=== PATIENT | female | born 1985 | race Caucasian/White ===

== ENCOUNTER 2018-10-10 10:42 | Emergency (ER) | payer MEDICAID, SELFPAY ==
[2018-10-10 11:20] VITALS: BP 111/70; PULSE 88; RESP 16; TEMP 36.8; O2SAT 98
--- NOTE | 2018-10-10 11:53 | NUR.NOTE ---
Nursing Note: Told [facility] that she was going home in pain. LWBS. Dayanara Solomon
== END 2018-10-10 11:53 | disposition left before discharge ==
LOC: ER 11:31
PROVIDERS: PCP Nurse Practitioner Family
DX: Z53.21 Procedure and treatment not carried out due to patient leaving prior to being seen by health care provider (principal)

== ENCOUNTER 2018-12-18 13:06 | Emergency (ER) | payer MEDICAID, SELFPAY ==
[2018-12-18 13:12] VITALS: BP 117/81; PULSE 107; RESP 16; TEMP 36.5; O2SAT 97
--- NOTE | 2018-12-18 13:17 | W.ED.GENAD ---
Discharge Plan Disposition Patient Disposition: HOME Condition: Stable Discharge Details Chief Complaint: DentalOral Clinical Impression: Dental infection Primary Care Provider: Cholo Mtz ED Provider: Chay Paez Home Meds and New Rx's Prescriptions: New penicillin V potassium 500 mg tablet 500 mg PO QID 10 Days Qty: 40 RF: 0 Continued gabapentin 800 mg Tablet 800 mg PO TID RF: 0 buprenorphine-naloxone [Suboxone] 8-2 mg Film DAILY RF: 0 Discharge Instructions Instructions: Dental Abscess (ED) Additional Instructions: follow up with your dentist office within 2 weeks if you have difficulty breathing or swallowing liquids return to the emergency department Medical Decision Making 33 yo female comes in with one week of left upper tooth pain and has had increased swelling of the cheek for a day. Denies dyspnea or difficulty swallowing. She has numerous dental caries and the left upper molar (last that is left posteriorly) is eroded with pain with percussion to this tooth, no visible abscess I can drain, mild swelling of soft tissues over this on the cheek. Normal oropharynx, midline uvula, no pain over hyoid or submandibular swelling so doubt ludwigs, epiglotitis, rpa. Will start abx and advised f/u with dentist and return precautions given Differential Diagnosis tooth abscess, pulpitis, caries HPI General Mode of arrival: ambulatory. Date/Time Provider Initiated Documentation: 12/18/18 13:08. Limitations to Documentation: no limitations. Information obtained by: patient. History of Present Illness 33 year old F presents to the emergency department with the chief complaint of left upper tooth pain, described as moderate, Quality is described as aching, and is localized to the mouth. Patient reports no radiation. Patient started experiencing this week(s) (1) and it has been constant. No relieving factors improve symptom(s), No exacerbating factors reported . Patient notes no other symptoms.. Related Data Home Medications Medication Instructions Recorded Confirmed buprenorphine-naloxone [Suboxone] DAILY 10/10/18 gabapentin 800 mg PO TID 10/10/18 12/18/18 penicillin V potassium 500 mg PO QID 10 Days #40 tab 12/18/18 Previous Rx's Medication Instructions Recorded penicillin V potassium 500 mg PO QID 10 Days #40 tab 12/18/18 Allergies Allergy/AdvReac Type Severity Reaction Status Date / Time bees Allergy Uncoded 12/18/18 13:17 General Stated Complaint: DentalOral RUFINO: 4 Review of Systems Review of Systems All systems reviewed & are unremarkable except as noted in HPI and below Constitutional Denies chills, Denies fever(s) and Denies weakness Cardiovascular Denies chest pain and Denies dyspnea Respiratory Denies cough and Denies dyspnea Gastrointestinal Denies nausea and Denies vomiting Neurologic Denies weakness PFSH Social History Smoking/Tobacco Use Status: Current every day Tobacco Type: cigarettes Exam Const General: no acute distress Orientation: alert HENMT Head: normal to inspection Ears: external ears normal General nose exam: external nose normal Mouth: moist mucous membranes Eyes General: appearance normal, both eyes and all related structures Neck Neck: normal visual inspection Resp Effort & Inspection: normal respiratory effort and able to speak in complete sentences Cardio Rate: regular rate Skin General skin exam: no rashes or lesions noted Neuro General: alert and oriented x3 Extrem General: normal to inspection Psych Mental Status: mental status grossly normal Course Vital Signs Temperature 36.5 C 12/18/18 13:12 Pulse 107 H 12/18/18 13:12 Respiratory Rate 16 12/18/18 13:12 Blood Pressure 117/81 12/18/18 13:12 Pulse Oximetry 97 12/18/18 13:12 Temperature 36.5 C 12/18/18 13:12 Temperature Source Skin 12/18/18 13:12 Pulse 107 H 12/18/18 13:12 Respiratory Rate 16 12/18/18 13:12 Respiratory Effort 12/18/18 13:12 Blood Pressure 117/81 12/18/18 13:12 Blood Pressure Position Sitting 12/18/18 13:12 Pulse Oximetry 97 12/18/18 13:12 Oxygen Delivery Method Room Air 12/18/18 13:12 Oxygen Flow Rate 0 12/18/18 13:12 Pain Level 5 12/18/18 13:12
--- NOTE | 2018-12-18 13:21 | ED.GENADUL_ITS ---
Discharge Plan Disposition Patient Disposition: HOME Condition: Stable Discharge Details Chief Complaint: DentalOral Clinical Impression: Dental infection Primary Care Provider: Cholo Mtz ED Provider: Chay Paez Home Meds and New Rx's Prescriptions: New penicillin V potassium 500 mg tablet 500 mg PO QID 10 Days Qty: 40 RF: 0 Continued gabapentin 800 mg Tablet 800 mg PO TID RF: 0 buprenorphine-naloxone [Suboxone] 8-2 mg Film DAILY RF: 0 Discharge Instructions Instructions: Dental Abscess (ED) Additional Instructions: follow up with your dentist office within 2 weeks if you have difficulty breathing or swallowing liquids return to the emergency department Medical Decision Making 33 yo female comes in with one week of left upper tooth pain and has had increased swelling of the cheek for a day. Denies dyspnea or difficulty swallowing. She has numerous dental caries and the left upper molar (last that is left posteriorly) is eroded with pain with percussion to this tooth, no visible abscess I can drain, mild swelling of soft tissues over this on the cheek. Normal oropharynx, midline uvula, no pain over hyoid or submandibular swelling so doubt ludwigs, epiglotitis, rpa. Will start abx and advised f/u with dentist and return precautions given Differential Diagnosis tooth abscess, pulpitis, caries HPI General Mode of arrival: ambulatory . Date/Time Provider Initiated Documentation: 12/18/18 13:08 . Limitations to Documentation: no limitations . Information obtained by: patient . History of Present Illness 33 year old F presents to the emergency department with the chief complaint of left upper tooth pain, described as moderate, Quality is described as aching, and is localized to the mouth. Patient reports no radiation. Patient started experiencing this week(s) (1) and it has been constant. No relieving factors improve symptom(s), No exacerbating factors reported . Patient notes no other symptoms.. Related Data Home Medications Medication Instructions Recorded Confirmed buprenorphine-naloxone [Suboxone] DAILY 10/10/18 gabapentin 800 mg PO TID 10/10/18 12/18/18 penicillin V potassium 500 mg PO QID 10 Days #40 tab 12/18/18 Previous Rx's Medication Instructions Recorded penicillin V potassium 500 mg PO QID 10 Days #40 tab 12/18/18 Allergies Allergy/AdvReac Type Severity Reaction Status Date / Time bees Allergy Uncoded 12/18/18 13:17 General Stated Complaint: DentalOral RUFINO: 4 Review of Systems Review of Systems All systems reviewed & are unremarkable except as noted in HPI and below Constitutional Denies chills, Denies fever(s) and Denies weakness Cardiovascular Denies chest pain and Denies dyspnea Respiratory Denies cough and Denies dyspnea Gastrointestinal Denies nausea and Denies vomiting Neurologic Denies weakness PFSH Social History Smoking/Tobacco Use Status: Current every day Tobacco Type: cigarettes Exam Const General: no acute distress Orientation: alert HENMT Head: normal to inspection Ears: external ears normal General nose exam: external nose normal Mouth: moist mucous membranes Eyes General: appearance normal, both eyes and all related structures Neck Neck: normal visual inspection Resp Effort & Inspection: normal respiratory effort and able to speak in complete sentences Cardio Rate: regular rate Skin General skin exam: no rashes or lesions noted Neuro General: alert and oriented x3 Extrem General: normal to inspection Psych Mental Status: mental status grossly normal Course Vital Signs Temperature 36.5 C 12/18/18 13:12 Pulse 107 H 12/18/18 13:12 Respiratory Rate 16 12/18/18 13:12 Blood Pressure 117/81 12/18/18 13:12 Pulse Oximetry 97 12/18/18 13:12 Temperature 36.5 C 12/18/18 13:12 Temperature Source Skin 12/18/18 13:12 Pulse 107 H 12/18/18 13:12 Respiratory Rate 16 12/18/18 13:12 Respiratory Effort 12/18/18 13:12 Blood Pressure 117/81 12/18/18 13:12 Blood Pressure Position Sitting 12/18/18 13:12 Pulse Oximetry 97 12/18/18 13:12 Oxygen Delivery Method Room Air 12/18/18 13:12 Oxygen Flow Rate 0 12/18/18 13:12 Pain Level 5 12/18/18 13:12
== END 2018-12-18 13:26 | disposition home or self-care (01) ==
PROVIDERS: Emergency Provider Emergency Medicine; PCP Nurse Practitioner Family
DX: K04.7 Periapical abscess without sinus (principal); F17.210 Nicotine dependence, cigarettes, uncomplicated
CPT/HCPCS: 99283

== ENCOUNTER 2018-12-25 10:48 | Emergency (ER) | payer MEDICAID, SELFPAY ==
[2018-12-25 10:53] VITALS: BP 111/82; PULSE 92; RESP 12; TEMP 36.8; O2SAT 98
--- NOTE | 2018-12-25 11:01 | W.ED.GENAD ---
Discharge Plan Disposition Patient Disposition: HOME Condition: Fair Discharge Details Chief Complaint: DentalOral Clinical Impression: Dental infection Primary Care Provider: Cholo Mtz ED Provider: Angela Zhang Home Meds and New Rx's Prescriptions: New clindamycin HCl 150 mg capsule 450 mg PO TID Qty: 63 RF: 0 Continued gabapentin 800 mg Tablet 800 mg PO TID RF: 0 buprenorphine-naloxone [Suboxone] 8-2 mg Film 4 film DAILY RF: 0 Discontinued penicillin V potassium 500 mg tablet 500 mg PO QID 10 Days Qty: 40 RF: 0 Discharge Instructions Instructions: Dental Abscess (ED) Additional Instructions: Encourage hydration. Tylenol and ibuprofen as needed for discomfort. Please take antibiotics as prescribed, stop the penicillin to begin clindamycin. Please keep appointment with dentist. If you develop increased swelling, increased pain, fever/chills or other new/worsening symptoms please seek care urgently once again Referrals: Cholo Mtz [Primary Care Provider] - Medical Decision Making Patient is a 33-year-old female presenting today with chief complaint of left upper dental pain. She reports that she has had this for over the past week. Was seen here 5 days ago and started on penicillin for dental infection. She has a fractured #12 tooth. Patient has had multiple dental extractions on exam. She is afebrile, nontoxic-appearing. She does have soft tissue swelling on the face. She is endorsing headaches. She is a chills at home but no known fever. Endorses nausea but no vomiting. She does appear fatigued. She has soft tissue swelling but no evidence of fluctuance to suggest drainable abscess. Will evaluate ultrasound Ultrasound was performed by Dr. Ignacio. She does note some edema in the tissues but no focal area to suggest a drainable abscess. Discussed this with the patient. As the penicillin has not been of benefit, will transition to clindamycin. Encourage hydration. Patient status post tubal ligation. We discussed new/worsening symptoms that should prompt urgent evaluation once again. Advised that she keep her appointment with her dentist. All other questions and concerns were addressed and she is in agreement with this plan HPI General Mode of arrival: ambulatory. Date/Time Provider Initiated Documentation: 12/25/18 11:01. Limitations to Documentation: no limitations. Information obtained by: patient and RN notes reviewed. History of Present Illness 33 year old F presents to the emergency department with the chief complaint of left upper dental pain, described as moderate, with intensity rated at 7. Quality is described as aching, and is localized to the mouth. Patient reports radiation to (upper toward left eye). Patient started experiencing this week(s) and it has been constant. No relieving factors improve symptom(s), No exacerbating factors reported . Patient notes fever/chills (endorses chills, no known fevers), headaches and nausea/vomiting (nausea, no vomiting); denies chest pain, cough, diaphoresis, rash, shortness of breath and syncope. Patient did receive the following treatments prior to arrival, other (was on penicillin) Related Data Home Medications Medication Instructions Recorded Confirmed buprenorphine-naloxone [Suboxone] 4 film DAILY 10/10/18 12/25/18 gabapentin 800 mg PO TID 10/10/18 12/25/18 clindamycin HCl 450 mg PO TID #63 cap 12/25/18 Previous Rx's Medication Instructions Recorded clindamycin HCl 450 mg PO TID #63 cap 12/25/18 Allergies Allergy/AdvReac Type Severity Reaction Status Date / Time bees Allergy Uncoded 12/25/18 10:57 General Stated Complaint: DentalOral RUFINO: 4 Review of Systems Constitutional Reports as per HPI, Reports chills, Reports fatigue, Denies fever(s), Denies headache(s) and Reports poor appetite Eyes Denies change in vision and Denies irritation ENT Reports as per HPI, Reports dental pain, Denies dysphagia, Denies dizziness, Denies dry mouth, Denies ear discharge, Denies otalgia, Reports facial pain, Denies headache(s), Denies hoarseness, Denies lip swelling, Denies nasal congestion, Denies odynophagia and Denies sore throat Cardiovascular Reports as per HPI and Denies chest pain Respiratory Reports as per HPI and Denies cough Gastrointestinal Reports as per HPI, Denies dysphagia, Denies nausea, Denies odynophagia and Denies vomiting Integumentary/Breasts Reports as per HPI, Denies erythema, Denies rash and Denies skin pain Neurologic Reports as per HPI, Denies dizziness and Denies headache(s) Endocrine Reports fatigue Allergic/Immunologic Denies lip swelling [facility] Social History Smoking/Tobacco Use Status: Current every day Tobacco Type: cigarettes Alcohol Intake: never Drug use: Never Substance use type: does not use Do you feel safe at home: Yes Do you feel safe in your relationship?: Yes Exam Const General: cooperative, healthy appearing, comfortable, no acute distress, well developed and well groomed Nutritional Appearance: average body habitus and well nourished Orientation: alert and awake [facility] Head: normal to inspection, normocephalic and atraumatic Ears: hearing grossly normal bilaterally, external ears normal and TM's normal bilaterally General nose exam: external nose normal and nares normal Face and sinus: abnormal facial exam (swelling noted on left cheek ) and sinuses nontender Mouth: lip normal, tongue normal, moist mucous membranes, No mouth trauma, no muffled voice, normal tongue, no trismus and No restricted motion Teeth and gingiva: poor dentition (fractured #12 tooth, pain and swelling buccally. No fluctuance palpable) Throat: posterior oropharynx normal, tonsils normal and uvula midline Eyes General: appearance normal, both eyes and all related structures Neck Neck: normal visual inspection, full ROM, no lymphadenopathy, supple and no anterior neck swelling Resp Effort & Inspection: normal respiratory effort, able to speak in complete sentences and no respiratory distress Auscultation: clear to auscultation bilaterally, no rales, no rhonchi and no wheezes Cardio Rate: regular rate Rhythm: regular rhythm Heart Sounds: S1 normal and S2 normal Skin General skin exam: no rashes or lesions noted Trauma: no lacerations or abrasions Neuro General: alert and awake Cognition: normal cognition Speech: speech normal Gait: normal gait Psych Appearance: grossly normal and well kempt Mental Status: mental status grossly normal Speech and Movement: speech and movement normal Course Vital Signs Temperature 36.8 C 12/25/18 10:53 Pulse 92 H 12/25/18 10:53 Respiratory Rate 12 12/25/18 10:53 Blood Pressure 111/82 12/25/18 10:53 Pulse Oximetry 98 12/25/18 10:53 Temperature 36.8 C 12/25/18 10:53 Temperature Source Temporal Artery Scan 12/25/18 10:53 Pulse 92 H 12/25/18 10:53 Respiratory Rate 12 12/25/18 10:53 Respiratory Effort Non-Labored 12/25/18 10:55 Blood Pressure 111/82 12/25/18 10:53 Blood Pressure Position Sitting 12/25/18 10:53 Pulse Oximetry 98 12/25/18 10:53 Oxygen Delivery Method Room Air 12/25/18 10:53 Oxygen Flow Rate 0 12/25/18 10:53 Pain Level 7 12/25/18 10:56
--- NOTE | 2018-12-25 11:10 | ED.GENADUL_ITS ---
Discharge Plan Disposition Patient Disposition: HOME Condition: Fair Discharge Details Chief Complaint: DentalOral Clinical Impression: Dental infection Primary Care Provider: Cholo Mtz ED Provider: Angela Zhang Home Meds and New Rx's Prescriptions: New clindamycin HCl 150 mg capsule 450 mg PO TID Qty: 63 RF: 0 Continued gabapentin 800 mg Tablet 800 mg PO TID RF: 0 buprenorphine-naloxone [Suboxone] 8-2 mg Film 4 film DAILY RF: 0 Discontinued penicillin V potassium 500 mg tablet 500 mg PO QID 10 Days Qty: 40 RF: 0 Discharge Instructions Instructions: Dental Abscess (ED) Additional Instructions: Encourage hydration. Tylenol and ibuprofen as needed for discomfort. Please take antibiotics as prescribed, stop the penicillin to begin clindamycin. Please keep appointment with dentist. If you develop increased swelling, increased pain, fever/chills or other new/worsening symptoms please seek care urgently once again Referrals: Cholo Mtz [Primary Care Provider] - Medical Decision Making Patient is a 33-year-old female presenting today with chief complaint of left upper dental pain. She reports that she has had this for over the past week. Was seen here 5 days ago and started on penicillin for dental infection. She has a fractured #12 tooth. Patient has had multiple dental extractions on exam. She is afebrile, nontoxic-appearing. She does have soft tissue swelling on the face. She is endorsing headaches. She is a chills at home but no known fever. Endorses nausea but no vomiting. She does appear fatigued. She has soft tissue swelling but no evidence of fluctuance to suggest drainable abscess. Will evaluate ultrasound Ultrasound was performed by Dr. Ignacio. She does note some edema in the tissues but no focal area to suggest a drainable abscess. Discussed this with the patient. As the penicillin has not been of benefit, will transition to clindamycin. Encourage hydration. Patient status post tubal ligation. We discussed new/worsening symptoms that should prompt urgent evaluation once again. Advised that she keep her appointment with her dentist. All other questions and concerns were addressed and she is in agreement with this plan HPI General Mode of arrival: ambulatory . Date/Time Provider Initiated Documentation: 12/25/18 11:01 . Limitations to Documentation: no limitations . Information obtained by: patient and RN notes reviewed . History of Present Illness 33 year old F presents to the emergency department with the chief complaint of left upper dental pain, described as moderate, with intensity rated at 7. Quality is described as aching, and is localized to the mouth. Patient reports radiation to (upper toward left eye). Patient started experiencing this week(s) and it has been constant. No relieving factors improve symptom(s), No exacerbating factors reported . Patient notes fever/chills (endorses chills, no known fevers), headaches and nausea/vomiting (nausea, no vomiting); denies chest pain, cough, diaphoresis, rash, shortness of breath and syncope. Patient did receive the following treatments prior to arrival, other (was on penicillin) Related Data Home Medications Medication Instructions Recorded Confirmed buprenorphine-naloxone [Suboxone] 4 film DAILY 10/10/18 12/25/18 gabapentin 800 mg PO TID 10/10/18 12/25/18 clindamycin HCl 450 mg PO TID #63 cap 12/25/18 Previous Rx's Medication Instructions Recorded clindamycin HCl 450 mg PO TID #63 cap 12/25/18 Allergies Allergy/AdvReac Type Severity Reaction Status Date / Time bees Allergy Uncoded 12/25/18 10:57 General Stated Complaint: DentalOral RUFINO: 4 Review of Systems Constitutional Reports as per HPI, Reports chills, Reports fatigue, Denies fever(s), Denies headache(s) and Reports poor appetite Eyes Denies change in vision and Denies irritation ENT Reports as per HPI, Reports dental pain, Denies dysphagia, Denies dizziness, Denies dry mouth, Denies ear discharge, Denies otalgia, Reports facial pain, Denies headache(s), Denies hoarseness, Denies lip swelling, Denies nasal congestion, Denies odynophagia and Denies sore throat Cardiovascular Reports as per HPI and Denies chest pain Respiratory Reports as per HPI and Denies cough Gastrointestinal Reports as per HPI, Denies dysphagia, Denies nausea, Denies odynophagia and Denies vomiting Integumentary/Breasts Reports as per HPI, Denies erythema, Denies rash and Denies skin pain Neurologic Reports as per HPI, Denies dizziness and Denies headache(s) Endocrine Reports fatigue Allergic/Immunologic Denies lip swelling [facility] Social History Smoking/Tobacco Use Status: Current every day Tobacco Type: cigarettes Alcohol Intake: never Drug use: Never Substance use type: does not use Do you feel safe at home: Yes Do you feel safe in your relationship?: Yes Exam Const General: cooperative, healthy appearing, comfortable, no acute distress, well developed and well groomed Nutritional Appearance: average body habitus and well nourished Orientation: alert and awake [facility] Head: normal to inspection, normocephalic and atraumatic Ears: hearing grossly normal bilaterally, external ears normal and TM's normal bilaterally General nose exam: external nose normal and nares normal Face and sinus: abnormal facial exam (swelling noted on left cheek ) and sinuses nontender Mouth: lip normal, tongue normal, moist mucous membranes, No mouth trauma, no muffled voice, normal tongue, no trismus and No restricted motion Teeth and gingiva: poor dentition (fractured #12 tooth, pain and swelling buccally. No fluctuance palpable) Throat: posterior oropharynx normal, tonsils normal and uvula midline Eyes General: appearance normal, both eyes and all related structures Neck Neck: normal visual inspection, full ROM, no lymphadenopathy, supple and no anterior neck swelling Resp Effort & Inspection: normal respiratory effort, able to speak in complete sentences and no respiratory distress Auscultation: clear to auscultation bilaterally, no rales, no rhonchi and no wh eezes Cardio Rate: regular rate Rhythm: regular rhythm Heart Sounds: S1 normal and S2 normal Skin General skin exam: no rashes or lesions noted Trauma: no lacerations or abrasions Neuro General: alert and awake Cognition: normal cognition Speech: speech normal Gait: normal gait Psych Appearance: grossly normal and well kempt Mental Status: mental status grossly normal Speech and Movement: speech and movement normal Course Vital Signs Temperature 36.8 C 12/25/18 10:53 Pulse 92 H 12/25/18 10:53 Respiratory Rate 12 12/25/18 10:53 Blood Pressure 111/82 12/25/18 10:53 Pulse Oximetry 98 12/25/18 10:53 Temperature 36.8 C 12/25/18 10:53 Temperature Source Temporal Artery Scan 12/25/18 10:53 Pulse 92 H 12/25/18 10:53 Respiratory Rate 12 12/25/18 10:53 Respiratory Effort Non-Labored 12/25/18 10:55 Blood Pressure 111/82 12/25/18 10:53 Blood Pressure Position Sitting 12/25/18 10:53 Pulse Oximetry 98 12/25/18 10:53 Oxygen Delivery Method Room Air 12/25/18 10:53 Oxygen Flow Rate 0 12/25/18 10:53 Pain Level 7 12/25/18 10:56
== END 2018-12-25 11:51 | disposition home or self-care (01) ==
PROVIDERS: Emergency Provider Physician Assistant; PCP Nurse Practitioner Family
DX: K04.7 Periapical abscess without sinus (principal); F17.210 Nicotine dependence, cigarettes, uncomplicated
CPT/HCPCS: 99283

== ENCOUNTER 2022-03-30 07:29 | Emergency (ER) | payer MEDICAID, SELFPAY ==
[2022-03-30 07:31] VITALS: BP 125/80; PULSE 111; RESP 16; TEMP 36.7; O2SAT 95
--- NOTE | 2022-03-30 08:09 | ED.GENADUL_ITS ---
Discharge Plan Disposition Patient Disposition: HOME Condition: Stable Discharge Details Clinical Impression: Infected dental caries Primary Care Provider: Cholo Mtz ED Provider: Kat Morales Home Meds and New Rx's Prescriptions: New clindamycin HCl 150 mg capsule 450 mg PO TID 7 Days Qty: 63 0RF Continued methadone 10 mg/mL Concentrate 130 mg PO DAILY gabapentin 800 mg Tablet 800 mg PO TID Discharge Instructions Instructions: Dental Caries (ED) Additional Instructions: Drink plenty of fluids and get plenty of rest. Alternate tylenol and motrin as needed and directed for pain. A prescription for antibiotics has been sent electronically to your pharmacy to take as directed until finished. Call your dentist today to schedule a follow-up appointment for reevaluation. Return immediately to the emergency department if you develop any worsening or new concerning symptoms such as fever, worsening pain, facial droop, slurred speech, extremity weakness or numbness. 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 Urine test negative. She is endorsing numbness that is from her right eyebrow up to the top of her h ead. She appears comfortable and nontoxic. She is afebrile. She has poor dentition throughout. She has tenderness to palpation of tooth #30 and 31 with dental fracture and parts of teeth missing. There is a 3 x 3 mm ulceration with yellow pus noted on the lingual of tooth #30. There is no significant surrounding fluctuance. Offered to puncture site with needle but patient declined stating she only wants antibiotic. She is advised to use salt water gargles, alternate Tylenol and Motrin. She was treated with amoxicillin a month ago, will cover with clindamycin. She was given Bactrim x-rays discussed with patient that her localized area of numbness does not appear consistent with stro ke and can be associated with sinus or dental. She has no other focal deficits throughout. Discussed that if she develops fever or worsening pain or any persistent strokelike symptoms including facial droop, slurred speech or unilateral numbness or weakness, to return immediately to the emergency department. Medical Records Medical records reviewed: Yes I reviewed the patient's medical records. HPI General Mode of arrival: ambulatory . Date/Time Provider Initiated Documentation: 03/30/22 07:57 . Limitations to Documentation: no limitations . Information obtained by: patient . HPI Narrative: Patient is a 36-year-old female presents with right lower dental pain for the past few months, getting progressively worse. She states she was treated with amoxicillin at [place] 1 month ago with improvement of symptoms. She states the past few days she noticed tingling and numbness on the right side top of her head from her eyebrow up to the top of her head. She denies any facial droop, slurred speech, weakness or numbness in her arms or legs, headache, dizziness or blurry vision. She states she has been taking Tylenol and Motrin for pain relief. She states she does have a dentist but has not yet made an appointment. Related Data Home Medications Medication Instructions Recorded Confirmed gabapentin 800 mg tablet 800 mg PO TID 10/10/18 03/30/22 clindamycin HCl 150 mg capsule 450 mg PO TID 7 days #63 caps 03/30/22 methadone 10 mg/mL oral concentrate 130 mg PO DAILY 03/30/22 03/30/22 Previous Rx's Medication Instructions Recorded clindamycin HCl 150 mg capsule 450 mg PO TID 7 days #63 caps 03/30/22 Allergies Allergy/AdvReac Type Severity Reaction Status Date / Time bees Allergy Uncoded 03/30/22 07:37 General Stated Complaint: DentalOral RUFINO: 4 Review of Systems All systems reviewed & are unremarkable except as noted in HPI and below Constitutional Constitutional: Reports as per HPI, Denies chills and Denies fever(s) Eyes Eyes: Denies blurry vision ENT Ears, Nose, Mouth, and Throat: Reports dental pain, Denies dizziness, Denies sore throat and Denies throat swelling Cardiovascular Cardiovascular: Denies chest pain and Denies dyspnea Respiratory Respiratory: Denies cough and Denies dyspnea Gastrointestinal Gastrointestinal: Denies abdominal pain, Denies diarrhea and Denies vomiting Genitourinary Genitourinary: Denies hematuria and Denies dysuria Musculoskeletal Musculoskeletal: Denies back pain and Denies numbness Integumentary/Breasts Skin/Breast: Denies lesions and Denies rash Neurologic Neurologic: Denies dizziness, Denies localized weakness and Denies numbness Allergic/Immunologic Allergic/Immunologic: Denies throat swelling PFSH All Active Problems (Updated 03/30/22 @ 08:22 by Kat Morales DO) Infected dental caries (Acute) Medical History (Updated 03/30/22 @ 08:22 by Kat Morales DO) Chronic back pain Narcotic abuse in remission Surgical History (Updated 03/30/22 @ 08:11 by Kat Morales DO) History of abdominal surgery History of hernia repair Social History Smoking/Tobacco Use Status: Current every day Tobacco Type: cigarettes Smoking risk assessment performed?: Yes Alcohol Intake: never Drug use: Never Substance use type: does not use Do you feel safe at home: Yes Do you feel safe in your relationship?: Yes Exam Const General: cooperative, healthy appearing and no acute distress HENMT Head: normal to inspection Ears: hearing grossly normal bilaterally, external ears normal and TM's normal bilaterally General nose exam: external nose normal Mouth: oral mucosae normal, no drooling and no trismus Teeth and gingiva: poor dentition Teeth image: 1. Parts of teeth missing. Minimal edema and erythema surrounding tooth #30. 2. There is a 3 x 3 mm ulceration with yellow pus noted on the lingual wall of tooth #30. There is no significant surrounding fluctuance. Throat: posterior oropharynx normal Eyes General: appearance normal, both eyes and all related structures Eyelids: eyelids normal Pupils: PERRL EOM: EOM intact bilaterally Neck Neck: normal visual inspection, full ROM, no lymphadenopathy, no meningeal si gns, trachea midline, supple, no anterior neck swelling and No submandibular swelling Resp Effort & Inspection: normal respiratory effort and able to speak in complete sentences Cardio Rate: regular rate Skin General skin exam: no rashes or lesions noted Neuro General: patient alert, patient awake, patient oriented x3, gait normal, moves all extremities and no meningeal signs Cranial Nerves: CN's II-XI intact bilaterally Motor: muscle tone normal throughout and strength 5/5 throughout Extrem General: normal to inspection and full ROM Psych Appearance: grossly normal Affect: normal affect Course Vital Signs Vital signs: Vital Signs Temperature 98.1 F 03/30/22 07:31 Pulse 111 H 03/30/22 07:31 Respiratory Rate 16 03/30/22 07:31 Blood Pressure 125/80 03/30/22 07:31 Pulse Oximetry 95 03/30/22 07:31 Temperature 98.1 F 03/30/22 07:31 Temperature Source Temporal Artery Scan 03/30/22 07:31 Pulse 111 H 03/30/22 07:31 Respiratory Rate 16 03/30/22 07:31 Respiratory Effort Non-Labored 03/30/22 07:35 Blood Pressure 125/80 03/30/22 07:31 Blood Pressure Position Sitting 03/30/22 07:31 Pulse Oximetry 95 03/30/22 07:31 Oxygen Delivery Method Room Air 03/30/22 07:31 Oxygen Flow Rate 0 03/30/22 07:31 Pain Level 4 03/30/22 07:36
== END 2022-03-30 08:31 | disposition home or self-care (01) ==
PROVIDERS: Emergency Provider Physician Assistant; PCP Nurse Practitioner Family
DX: K04.7 Periapical abscess without sinus (principal); K02.9 Dental caries, unspecified; K12.1 Other forms of stomatitis; F17.210 Nicotine dependence, cigarettes, uncomplicated
CPT/HCPCS: 99283; 99284

== ENCOUNTER 2022-06-10 08:19 | Emergency (ER) | payer MEDICAID, SELFPAY ==
[2022-06-10 08:24] VITALS: BP 124/73; PULSE 97; RESP 18; TEMP 37.9; O2SAT 99
--- NOTE | 2022-06-10 08:48 | ED.GENADUL_ITS ---
Discharge Plan Disposition Patient Disposition: Home Condition: Stable Discharge Details Clinical Impression: Dental infection Primary Care Provider: Cholo Mtz ED Provider: Harpreet Aguilar Home Meds and New Rx's Prescriptions: New amoxicillin 875 mg tablet 875 mg PO BID Qty: 20 0RF Continued methadone 10 mg/mL Concentrate 140 mg PO DAILY gabapentin 800 mg Tablet 800 mg PO TID Discharge Instructions Instructions: Dental Abscess (ED) Additional Instructions: Amoxicillin as directed. Cool and/or warm compresses every 2 hours for 20 minutes. [id number] medications as directed for symptomatic control. Please watch for new or worsening symptoms and return to the ER for any concerns. A single dose of your gabapentin has been provided until you can fill it tomorrow. Please contact your dentist tomorrow to discuss your ER visit and need for outpatient reevaluation. Medical Decision Making 37-year-old female who reports chronic right lower dental pain for at least 4 months, scheduled to have her tooth pulled but the dentist had a emergency and the appointment was canceled. Now reports increased dental pain for the past 4 days, requesting antibiotics for potential infection. Patient states that she a lso is having her gabapentin prescription changed from a different pharmacy and is requesting a single dose now, last dose taken last night, can fill the prescription tomorrow. Clinically she appears well, nontoxic, no evidence of trismus. Airway is patent. Will initiate amoxicillin, give a single dose of gabapentin, and we discussed the importance of outpatient follow-up through her dentist, I strongly recommend calling them on Sunday. She will need a dentist for definitive care. Standard discharge and return precautions were provided. Patient understands, is agreeable to this plan, and has no additional questions or concerns upon discharge. This documentation was generated using [employer] system, please disregard any oddities of phrase or misspellings. Medical Records Medical records reviewed: Yes I reviewed the patient's medical records. Sign Out No HPI General Mode of arrival: ambulatory . Date/Time Provider Initiated Documentation: 06/10/22 08:43 . Limitations to Documentation: no limitations . Information obtained by: patient . History of Present Illness 37 year old F presents to the emergency department with the chief complaint of R lower dental infection, described as moderate, with intensity rated at 6. Quality is described as aching, and is localized to the mouth. Patient reports no radiation. Patient started experiencing this month(s) (4, worse x few days) and it has been constant. No relieving factors improve symptom(s), No exacerbating factors reported . Patient notes no other symptoms.. Patient did receive the following treatments prior to arrival, none Related Data Home Medications Medication Instructions Recorded Confirmed gabapentin 800 mg tablet 800 mg PO TID 10/10/18 06/10/22 methadone 10 mg/mL oral concentrate 140 mg PO DAILY 03/30/22 06/10/22 amoxicillin 875 mg tablet 875 mg PO BID #20 tabs 06/10/22 Previous Rx's Medication Instructions Recorded amoxicillin 875 mg tablet 875 mg PO BID #20 tabs 06/10/22 Allergies Allergy/AdvReac Type Severity Reaction Status Date / Time bees Allergy Uncoded 06/10/22 08:27 General Stated Complaint: DentalOral RUFINO: 4 Review of Systems Constitutional Constitutional: Denies fever(s) ENT Ears, Nose, Mouth, and Throat: Denies sore throat Integumentary/Breasts Skin/Breast: Denies rash PFSH All Active Problems (Updated 06/10/22 @ 08:57 by SCOTTIE Wong) Dental infection (Acute) Medical History Chronic back pain Narcotic abuse in remission Surgical History History of abdominal surgery History of hernia repair Social History Smoking/Tobacco Use Status: Current every day Tobacco Type: cigarettes Smoking risk assessment performed?: Yes Alcohol Intake: never Drug use: Current Sobriety Substance use type: former substance user Do you feel safe at home: Yes Do you feel safe in your relationship?: Yes Exam Const General: cooperative, healthy appearing, comfortable and no acute distress Orientation: alert and awake [facility] Head: normal to inspection, normocephalic and atraumatic Ears: external ears normal, TM's normal bilaterally and EAC's normal Face and sinus: normal facial exam Mouth: moist mucous membranes Teeth image: 1. Dental carry, decay, nearly to the buccal mucosa. There is point tenderness but there is no obvious swelling, abscess, drainage. No trismus. Airway is patent. Throat: posterior oropharynx normal Eyes General: appearance normal, both eyes and all related structures Conjunctivae: conjunctivae normal Neck Neck: normal visual inspection, full ROM, no lymphadenopathy, no meningeal signs, trachea midline, supple and nontender Resp Effort & Inspection: normal respiratory effort and able to speak in complete sentences Auscultation: clear to auscultation bilaterally Cardio Rate: regular rate Rhythm: regular rhythm Skin General skin exam: no rashes or lesions noted Neuro General: patient alert, patient awake, moves all extremities and no focal motor deficits Sensory Exam: no sensory deficits noted Psych Appearance: grossly normal Mental Status: mental status grossly normal Course Vital Signs Vital signs: Vital Signs Temperature 37.9 C H 06/10/22 08:24 Pulse 97 H 06/10/22 08:24 Respiratory Rate 18 06/10/22 08:24 Blood Pressure 124/73 06/10/22 08:24 Pulse Oximetry 99 06/10/22 08:24 Temperature 37.9 C H 06/10/22 08:24 Temperature Source Temporal Artery Scan 06/10/22 08:24 Pulse 97 H 06/10/22 08:24 Respiratory Rate 18 06/10/22 08:24 Respiratory Effort Non-Labored 06/10/22 08:28 Blood Pressure 124/73 06/10/22 08:24 Blood Pressure Position Sitting 06/10/22 08:24 Pulse Oximetry 99 06/10/22 08:24 Oxygen Delivery Method Room Air 06/10/22 08:24 Oxygen Flow Rate 0 06/10/22 08:24
[2022-06-10] MEDS: Amoxicillin 875 MG TAB PO (09:26)
[2022-06-10] MEDS: Gabapentin 800 MG TAB PO (09:27)
== END 2022-06-10 09:26 | disposition home or self-care (01) ==
PROVIDERS: Emergency Provider Physician Assistant; PCP Nurse Practitioner Family
DX: K04.7 Periapical abscess without sinus (principal); M54.9 Dorsalgia, unspecified; G89.29 Other chronic pain
CPT/HCPCS: 99283

== ENCOUNTER 2022-11-10 11:12 | Emergency (ER) | payer MEDICAID, SELFPAY ==
[2022-11-10 11:19] VITALS: BP 128/78; PULSE 92; RESP 14; TEMP 37.1; O2SAT 98
--- NOTE | 2022-11-10 11:50 | W.ED.GENAD ---
Discharge Plan Discharge Details Chief Complaint: DentalOral Primary Care Provider: Cholo Mtz ED Provider: Jack Anderson Home Meds and New Rx's Prescriptions: No Action methadone 10 mg/mL Concentrate 140 mg PO DAILY gabapentin 800 mg Tablet 800 mg PO TID Medical Decision Making Patient with dental abscess. At this point I believe it is prudent to start her on penicillin pending her appointment with the dentist next week. She requested a dose of gabapentin because she vomited her gabapentin this morning. I think this is reasonable. HPI General Date/Time Provider Initiated Documentation: 11/10/22 11:46. HPI Narrative: 37-year-old presents to the emergency room for evaluation of draining dental abscess to her right lower mouth. Dental pain and swelling of the right side of her mouth for a few days now. States that the abscess came to a head this morning started draining. She unfortunately had also vomited her gabapentin this morning. She had no fevers no chills. Has an appointment next week with a dentist. Related Data Home Medications Medication Instructions Recorded Confirmed gabapentin 800 mg tablet 800 mg PO TID 10/10/18 11/10/22 methadone 10 mg/mL oral concentrate 140 mg PO DAILY 03/30/22 11/10/22 Allergies Allergy/AdvReac Type Severity Reaction Status Date / Time bees Allergy Uncoded 11/10/22 11:23 General Stated Complaint: DentalOral RUFINO: 4 Review of Systems Narrative: 10 point review of system is negative unless stated otherwise in the HPI FORMERLY [facility], [facility] Medical History Chronic back pain Narcotic abuse in remission Surgical History History of abdominal surgery History of hernia repair Social History Smoking/Tobacco Use Status: Former Tobacco Use Quit Date: 08/16/22 Smoking risk assessment performed?: Yes Alcohol Intake: never Drug use: Current Sobriety Substance use type: former substance user Do you feel safe at home: Yes Do you feel safe in your relationship?: Yes Exam Narrative Exam Narrative: General: A,A Ox3, Calm, no apparent distress, well developed, pleasant and cooperative Head Size/Shape: normocephalic, atraumatic Eyes Pupils: PERRLA Extraocular Mobility: intact and symmetrical Conjunctiva: non-injected, anicteric, no discharge Ears, Nose, Throat Nares: patent bilaterally Oral Cavity: moist, diffuse dental decay. There is pus draining at the first molar on the right lower. There is mild swelling to the right lower mandibular area. Neck: no masses, no crepitus Lymph Nodes: no cervical lymphadenopathy Respiratory Respiratory Effort: no dyspnea Cardiovascular normal cap refill Musculoskeletal System Joints, Bones, and Muscles: no deformities Extremities: warm and well-perfused, no cyanosis, capillary refill <2 seconds Skin Skin Inspection: no rash, no lesions, no bruising Neurological Motor: normal tone, normal strength, moving all extremities equally Psychiatric: good insight, good judgement, normal mood and affect Course Vital Signs Vital signs: Vital Signs Temperature 37.1 C 11/10/22 11:19 Pulse 92 H 11/10/22 11:19 Respiratory Rate 14 11/10/22 11:19 Blood Pressure 128/78 11/10/22 11:19 Pulse Oximetry 98 11/10/22 11:19 Temperature 37.1 C 11/10/22 11:19 Temperature Source Skin 11/10/22 11:19 Pulse 92 H 11/10/22 11:19 Respiratory Rate 14 11/10/22 11:19 Respiratory Effort Normal 11/10/22 11:24 Blood Pressure 128/78 11/10/22 11:19 Blood Pressure Position Sitting 11/10/22 11:19 Pulse Oximetry 98 11/10/22 11:19 Oxygen Delivery Method Room Air 11/10/22 11:19 Oxygen Flow Rate 0 11/10/22 11:19 Pain Level 4 11/10/22 11:24 Comment taking tylenol 11/10/22 11:19
[2022-11-10] MEDS: Gabapentin 800 MG TAB PO (12:02)
[2022-11-10] MEDS: Penicillin V POTASSIUM 500 MG TAB PO (12:02)
== END 2022-11-10 12:05 | disposition home or self-care (01) ==
PROVIDERS: Emergency Provider Emergency Medicine; PCP Nurse Practitioner Family
DX: K04.7 Periapical abscess without sinus (principal)
CPT/HCPCS: 99283

== ENCOUNTER 2023-02-06 13:56 | Emergency (ER) | payer MEDICAID, SELFPAY ==
[2023-02-06 13:57] VITALS: BP 158/109; PULSE 104; RESP 13; TEMP 36.7
[2023-02-06 14:09] VITALS: BP 158/109; PULSE 87; PULSE 94; RESP 17
--- NOTE | 2023-02-06 14:15 | RT.EKG_ITS ---
APPROVED REPORT Exam: Resting ECG Reason for Exam: weakness Patient Location: E HR:77 bpm ECG Measurements Heart Rate 77 AXIS [place] 162 P 34 QRSd 77 QRS 53 QT 408 T 30 QTc 462 Conclusion Sinus rhythm...normal P axis, V-rate 60- 99 sinus rhythm, normal axis, normal intervals, non ischemic
--- NOTE | 2023-02-06 14:15 | DI.CT_ITS ---
Exam(s) CT HEAD WO EXAM: CT HEAD WO CLINICAL HISTORY: ams. TECHNIQUE: Imaging Protocol: Axial computed tomography images with coronal and sagittal reformatted images were created and reviewed COMPARISON: No exams were available for comparison FINDINGS: Ventricles and Extra axial spaces: Normal in size and morphology for the patient's age. Hemorrhage: None. Cerebral parenchyma: Normal. Midline shift: None. Brainstem/Cerebellum: Normal. Calvarium: Normal. Visualized Paranasal sinuses/Mastoids: There is mild mucosal thickening in the maxillary sinuses and sphenoid sinuses. The mastoid air cells are clear. Soft Tissues: Unremarkable. IMPRESSION: 1. No acute intracranial process. 2. Findings were discussed with the emergency department at 4:35 p.m. on 02/06/2023. RADIATION DOSE DELIVERED: 745.27mGy.cm Total DLP DATA REPOSITORY: All CT scans at this facility are submitted to the National Radiology Data Registry (NRDR) Dose Index Registry (DIR) with the [employer] ([employer]). RADIATION OPTIMIZATION: All CT scans at this facility use at least one of these dose optimization te chniques: automated exposure control; mA and/or kV adjustment per patient size (includes targeted exa ms where dose is matched to clinical indication); or iterative reconstruction.
[2023-02-06 14:50] VITALS: PULSE 93; RESP 21
[2023-02-06 15:14] VITALS: BP 122/92; PULSE 101; PULSE 90; RESP 24
[2023-02-06 15:27] VITALS: BP 112/77; PULSE 90; PULSE 93; RESP 22
--- NOTE | 2023-02-06 15:30 | ED.GENADUL_ITS ---
Discharge Plan Disposition Patient Disposition: Home Condition: Improving Discharge Details Clinical Impression: Syncope and collapse, Overdose of benzodiazepine Primary Care Provider: Cholo Mtz ED Provider: Antonia Madrigal Home Meds and New Rx's Prescriptions: No Action methadone 10 mg/mL Concentrate 140 mg PO DAILY penicillin V potassium 500 mg tablet 500 mg PO QID Qty: 28 0RF gabapentin 800 mg Tablet 800 mg PO TID Discharge Instructions Instructions: Syncope (ED), Help Prevent Suicide (ED), Benzodiazepine Overdose (ED) Additional Instructions: Follow up with primary care provider in 3-5 days. Return to ED sooner if any worsening or concerns. Increase oral fluids. Please change positions slowly. If you have any thoughts of wanting to hurt yourself or others please call suicide hotline. Do not take any more Xanax may have had a reaction like this in the methadone. Referrals: Cholo Mtz [Primary Care Provider] - 3 days Discharge Data Discharge Date/Time-TO BE ENTERED AT DEPARTURE: 02/06/23 18:45 Medical Decision Making <SCOTTIE Mary - Last Filed: 02/07/23 10:24> This 37-year-old female with history of IV drug abuse on methadone presents for period of alteration in mental status, she is alert intermittently but falls asleep and is quite restless Her vitals have been stable Patient is alert to voice, she is able to follow all basic commands, she is alert x2, she is unaware of the date No evidence of lesions to her tongue, pupils equal round reactive to light and accommodation, no visible signs of trauma, no abdominal tenderness I am holding on additional Narcan at this time, she denies any attempts to harm self, given her confusion, I did order CT head, I did order Keppra as patient could also be postictal as she seems quite agitated She adamantly denies any illicit drug use Her labs, CT are pending at this time, she will need continued evaluation, she is also pending tox screen at this time Patient's fianc? does endorse that she has behaved similarly to this post seizure, however it is slightly more prolonged per boyfriend She will need continued observation, full diagnostic evaluation <Antonia Madrigal NP - Last Filed: 02/06/23 23:02> Medical Records Medical records reviewed: Yes I reviewed the patient's medical records. Lab Data Lab results reviewed: Yes I reviewed the patient's lab results. Labs: Laboratory Tests Range/Units 02/06/23 02/06/23 02/06/23 15:23 15:23 16:32 WBC (4.4-10.8) 10^3/uL RBC (3.93-5.22) 10^6/uL Hgb (11.2-15.7) g/dL Hct (36.0-46.0) % MCV (80-95) fL MCH (27.0-33.0) pg MCHC (32.0-36.0) % RDW (11.7-14.6) % Plt Count (130-400) 10^3/uL MPV (8.0-11.0) fL Immature Gran % Neutrophils % Lymphocytes % Monocytes % Eosinophils % Basophils % Nucleated RBC % (0.0-0.3) % Absolute Neutrophils (1.2-6.7) 10^3/uL Absolute Lymphocytes (1.2-3.4) 10^3/uL Absolute Monocytes (0.1-0.8) 10^3/uL Absolute Eosinophils (0.0-0.7) 10^3/uL Absolute Basophils (0.0-0.2) 10^3/uL Sodium (136-145) mmol/L 142 Potassium (3.5-5.1) mmol/L 4.1 Chloride (98-107) mmol/L 107 Carbon Dioxide (21.0-32.0) mmol/L 29.0 Anion Gap (3-11) mmol/L 6.0 BUN (7-18) mg/dL 7 Creatinine (0.55-1.02) mg/dL 0.7 Est GFR (CKD-EPI 2020) (mL/min/1.73m2) 112.75 Glucose (74-106) mg/dL 93 Calcium (8.5-10.1) mg/dL 8.3 L Magnesium (1.8-2.4) mg/dL Total Bilirubin (0.2-1.0) mg/dL 0.1 L AST (15-37) U/L 25 ALT (14-59) U/L 20 Alkaline Phosphatase (46-116) U/L 91 Ammonia (11-32) umol/L Troponin I (<or=60) ng/L Total Protein (6.4-8.2) g/dL 6.7 Albumin (3.4-5.0) g/dL 3.5 Urine Color (Yellow) Yellow Urine Clarity (Clear) Clear Urine pH (5-8) 6.0 Ur Specific [place] (1.005-1.025) 1.010 Urine Protein (Negative) mg/dL Negative Urine Ketones (Negative) mg/dL Negative Urine Blood (Negative) Trace-intact H Urine Nitrite (Negative) Negative Urine Bilirubin (Negative) Negative Urine Urobilinogen (Up to 0.2) mg/dL 0.2 Ur Leukocyte Esterase (Negative) Negative Urine RBC (0-2) HPF 0-2 Urine WBC (0-5) HPF 3-5 Ur Epithelial Cells (Negative) HPF Moderate Urine Crystals (Negative) HPF Negative Urine Bacteria (Negative) HPF Few Urine Casts (Negative) LPF Negative Urine Mucus (Negative) Negative Ur Culture Indicated? No/Sq. Contamination Urine Glucose (Negative) mg/dL Negative Urine Opiates Screen (Negative) Negative Urine Methadone Screen (Negative) Positive A Ur Barbiturates Screen (Negative) Negative Ur Tricyclics Screen (Negative) Negative Ur Amphetamines Screen (Negative) Negative U Benzodiazepines Scrn (Negative) Positive A Urine Cocaine Screen (Negative) Negative Ur THC Screen (Negative) Negative Ethyl Alcohol (<10) mg/dL < 3.0 Range/Units 02/06/23 02/06/23 02/06/23 16:32 16:32 16:32 WBC (4.4-10.8) 10^3/uL 5.93 RBC (3.93-5.22) 10^6/uL 4.22 Hgb (11.2-15.7) g/dL 11.5 Hct (36.0-46.0) % 35.9 L MCV (80-95) fL 85 MCH (27.0-33.0) pg 27.3 MCHC (32.0-36.0) % 32.0 RDW (11.7-14.6) % 14.8 H Plt Count (130-400) 10^3/uL 324 MPV (8.0-11.0) fL 9.2 Immature Gran % 0.0 Neutrophils % 80.9 Lymphocytes % 12.0 Monocytes % 4.9 Eosinophils % 1.5 Basophils % 0.7 Nucleated RBC % (0.0-0.3) % 0.0 Absolute Neutrophils (1.2-6.7) 10^3/uL 4.80 Absolute Lymphocytes (1.2-3.4) 10^3/uL 0.71 L Absolute Monocytes (0.1-0.8) 10^3/uL 0.29 Absolute Eosinophils (0.0-0.7) 10^3/uL 0.09 Absolute Basophils (0.0-0.2) 10^3/uL 0.04 Sodium (136-145) mmol/L Potassium (3.5-5.1) mmol/L Chloride (98-107) mmol/L Carbon Dioxide (21.0-32.0) mmol/L Anion Gap (3-11) mmol/L BUN (7-18) mg/dL Creatinine (0.55-1.02) mg/dL Est GFR (CKD-EPI 2020) (mL/min/1.73m2) Glucose (74-106) mg/dL Calcium (8.5-10.1) mg/dL Magnesium (1.8-2.4) mg/dL 1.8 Total Bilirubin (0.2-1.0) mg/dL AST (15-37) U/L ALT (14-59) U/L Alkaline Phosphatase (46-116) U/L Ammonia (11-32) umol/L 24 Troponin I (<or=60) ng/L < 50 Total Protein (6.4-8.2) g/dL Albumin (3.4-5.0) g/dL Urine Color (Yellow) Urine Clarity (Clear) Urine pH (5-8) Ur Specific [place] (1.005-1.025) Urine Protein (Negative) mg/dL Urine Ketones (Negative) mg/dL Urine Blood (Negative) Urine Nitrite (Negative) Urine Bilirubin (Negative) Urine Urobilinogen (Up to 0.2) mg/dL Ur Leukocyte Esterase (Negative) Urine RBC (0-2) HPF Urine WBC (0-5) HPF Ur Epithelial Cells (Negative) HPF Urine Crystals (Negative) HPF Urine Bacteria (Negative) HPF Urine Casts (Negative) LPF Urine Mucus (Negative) Ur Culture Indicated? Urine Glucose (Negative) mg/dL Urine Opiates Screen (Negative) Urine Methadone Screen (Negative) Ur Barbiturates Screen (Negative) Ur Tricyclics Screen (Negative) Ur Amphetamines Screen (Negative) U Benzodiazepines Scrn (Negative) Urine Cocaine Screen (Negative) Ur THC Screen (Negative) Ethyl Alcohol (<10) mg/dL HPI <SCOTTIE Mary - Last Filed: 02/07/23 10:24> General Date/Time Provider Initiated Documentation: 02/06/23 14:20 . HPI Narrative: This 37-year-old female was called to patient's home for episode of unresponsiveness with possible seizure. Patient was reportedly incontinent. EMS gave Narcan, she became slightly more responsive per EMS. Patient is unable to give much history here, she denies any overdose on medication to me, apparently she states she took 3 Xanax this morning. Denies any SI. History of seizures for which she takes Neurontin reportedly. Patient's fianc? was not at the home, she was home with the 10 and 6-year-old reportedly called EMS. Patient denies any chest pain, shortness of breath. There are no reported falls or injuries. She denies any additional illicit drug use. She does state that she took her methadone this morning. She is also taking meclizine intermittently for some vertigo symptoms per patient. Denies chance of . States she feels like she had a seizure this morning. Related Data Home Medications Medication Instructions Recorded Confirmed gabapentin 800 mg tablet 800 mg PO TID 10/10/18 11/10/22 methadone 10 mg/mL oral concentrate 140 mg PO DAILY 03/30/22 11/10/22 penicillin V potassium 500 mg 500 mg PO QID #28 tabs 11/10/22 tablet Previous Rx's Medication Instructions Recorded penicillin V potassium 500 mg 500 mg PO QID #28 tabs 11/10/22 tablet Allergies Allergy/AdvReac Type Severity Reaction Status Date / Time bees Allergy Uncoded 11/10/22 11:23 General Stated Complaint: OD/Poison RUFINO: 3 PFSH <SCOTTIE Mary - Last Filed: 02/07/23 10:24> All Active Problems (Updated 02/06/23 @ 18:36 by Antonia Madrigal NP) Syncope and collapse (Acute) Overdose of benzodiazepine (Acute) Medical History Chronic back pain Narcotic abuse in remission Surgical History History of abdominal surgery History of hernia repair Social History Smoking/Tobacco Use Status: Former Tobacco Use Quit Date: 08/16/22 Smoking risk assessment performed?: Yes Alcohol Intake: never Drug use: Current Sobriety Substance use type: former substance user Do you feel safe at home: Yes Do you feel safe in your relationship?: Yes Course <SCOTTIE Mary - Last Filed: 02/07/23 10:24> Vital Signs Vital signs: Vital Signs Temperature 36.7 C 02/06/23 13:57 Pulse 104 H 02/06/23 13:57 Respiratory Rate 13 02/06/23 13:57 Blood Pressure 158/109 H 02/06/23 13:57 Temperature 36.7 C 02/06/23 13:57 Temperature Source Skin 02/06/23 13:57 Pulse 104 H 02/06/23 13:57 Respiratory Rate 13 02/06/23 13:57 Blood Pressure 158/109 H 02/06/23 13:57 Oxygen Delivery Method Room Air 02/06/23 13:57 Oxygen Flow Rate 0 02/06/23 13:57 Sign Out <SCOTTIE Mary - Last Filed: 02/07/23 10:24> Sign Out Data: Sign Out Comment: pending labs, ct, observation Last updated by Lillie Ford PA at 02/06/23 16:10 <Antonia Madrigal NP - Last Filed: 02/06/23 23:02> 1600: Care assumed from provider (SCOTTIE Mary) Please see their initial HPI, PE, and documentation. Discussed patient details and case and pending workup and disposition. Patient is hemodynamically stable, and alert and oriented. [address] result received by radiology. At the time of signout awaiting labs observation and disposition and CT scan. Patient has received Keppra IV previously. In short patient is a 37-year-old female with a seizure history who is on Neurontin who is unresponsive on scene mildly responsive to Narcan. She does appear tired. UDS shows positive benzos and positive methadone which patient is taking. She did inform a member of the staff development coordinator rn that she did take Xanax. CBC shows no leukocytosis hemoglobin 11.5 hematocrit 35.9, RDW is 14.8, calcium 8.3 initial troponin within normal limits. Urinalysis shows trace blood squamous contamination no evidence of UTI. Ethyl alcohol is less than 3.0. 1726: At this time awaiting fluids and Keppra, patient on reevaluation states she feels better. Fianc? is at bedside. 1731: Keppra canceled, I do suspect that this is from Xanax and methadone, liter of LR is still ordered. Expected disposition is discharge pending reevaluation after fluids. Fianc? states that he feels comfortable taking patient home. Patient's vital signs have improved, she feels much better, patient discharged in the care of her fianc?. Patient was ambulatory to the bathroom without assistance. Discharge instructions given. This text was generated using [email or web address] system, please disregard any oddities of phrase or misspellings.
[2023-02-06 15:50] VITALS: PULSE 84; RESP 17
[2023-02-06 16:08] LABS: Bilirubin Negative (Negative); Blood Trace-intact (Negative); Clarity Clear (Clear); Glucose Negative (Negative); Ketones Negative (Negative); Leukocyte Esterase Negative (Negative); Nitrite Negative (Negative); Urobilinogen 0.2 mg/dL (Up to 0.2)
[2023-02-06 16:16] LABS: Bacteria Few HPF (Negative); C & S Indicated? No/Sq. Contamination; Casts Negative LPF (Negative); Crystals Negative HPF (Negative); Epithelial Cells Moderate HPF (Negative); Mucus Negative (Negative); RBC 0-2 HPF (0-2)
[2023-02-06 16:21] LABS: *AMPHETAMINES SCREEN URINE Negative (Negative); *BARBITURATES SCREEN URINE Negative (Negative); *BENZODIAZEPINES SCREEN URINE Positive (Negative); Cannabinoids THC Negative (Negative); Cocaine Screen,Urine Negative (Negative); METHADONE URINE SCREEN Positive (Negative); OPIATES URINE SCREEN Negative (Negative)
[2023-02-06 16:22] LABS: Tricyclic Antidepressants Negative (Negative)
[2023-02-06 16:42] LABS: Absolute Basophil Count 0.04 10^3/uL (0.0-0.2); Absolute Eosinophil Count 0.09 10^3/uL (0.0-0.7); Absolute Lymphocyte Count 0.71 10^3/uL (1.2-3.4); Absolute Monocyte Count 0.29 10^3/uL (0.1-0.8); Basophils % 0.7; Eosinophils % 1.5; HCT 35.9 % (36.0-46.0); HGB 11.5 g/dL (11.2-15.7); MCH 27.3 pg (27.0-33.0); MCV 85 fL (80-95); MPV 9.2 fL (8.0-11.0); Monocytes % 4.9; Neutrophils % 80.9; Platelet Count 324 10^3/uL (130-400); RBC 4.22 10^6/uL (3.93-5.22); RDW 14.8 % (11.7-14.6); RDW-SD 46.4 fL; WBC 5.93 10^3/uL (4.4-10.8)
[2023-02-06 16:53] LABS: Ammonia 24 umol/L (11-32)
[2023-02-06 17:00] LABS: ALT 20 U/L (14-59); AST 25 U/L (15-37); Albumin 3.5 g/dL (3.4-5.0); Alkaline Phosphatase 91 U/L (46-116); BUN 7 mg/dL (7-18); Bilirubin, Total 0.1 mg/dL (0.2-1.0); CREATININE 0.7 mg/dL (0.55-1.02); Calcium 8.3 mg/dL (8.5-10.1); Chloride 107 mmol/L (98-107); Estimated GFR 112.75 (mL/min/1.73m2); Glucose 93 mg/dL (74-106); Potassium 4.1 mmol/L (3.5-5.1); Sodium 142 mmol/L (136-145); Total Protein 6.7 g/dL (6.4-8.2)
[2023-02-06 17:04] LABS: Magnesium 1.8 mg/dL (1.8-2.4); Troponin I < 50 ng/L (<or=60)
[2023-02-06 17:13] LABS: ETHANOL BLOOD < 3.0 mg/dL (<10)
[2023-02-06] MEDS: Lactated Ringers 1,000 ML 1000 ML IV (17:36)
--- NOTE | 2023-02-09 15:12 | NUR.NOTE ---
Accessed chart to determine orders for EKG and to determine whether or not one needs to be cancelled. Duplicate order cancelled.Nursing Note:
== END 2023-02-06 18:45 | disposition home or self-care (01) ==
PROVIDERS: Physician Assistant; Emergency Provider Registered Nurse Emergency; PCP Nurse Practitioner Family
DX: R55 Syncope and collapse (principal); T42.4X1A Poisoning by benzodiazepines, accidental (unintentional), initial encounter
CPT/HCPCS: 80053; 80307; 81025; 93005; 96360; 99284; 70450; 80320; 81003; 81015; 82140; 83735; 84484; 85025; 93010

== ENCOUNTER 2024-12-22 11:52 | Emergency (ER) | payer MEDICAID, SELFPAY ==
[2024-12-22] VITALS (20 sets, daily range): BP systolic 105–133; BP diastolic 61–89; PULSE 70–110; RESP 11–27; TEMP 35.9; O2SAT 93–100
--- NOTE | 2024-12-22 12:00 | RT.EKG_ITS ---
APPROVED REPORT Exam: Resting ECG Reason for Exam: QTc eval Patient Location: E HR:82 bpm ECG Measurements Heart Rate 82 AXIS SD 149 P 45 QRSd 78 QRS 67 QT 432 T 51 QTc 505 Conclusion Sinus rhythm, rate 82 QTc prolonged at 505, increased from priors No STEMI
[2024-12-22 12:18] LABS: Abs Immature Grans 0.01 10^3/uL (0.0-0.06); Absolute Basophil Count 0.02 10^3/uL (0.0-0.2); Absolute Lymphocyte Count 1.04 10^3/uL (1.2-3.4); Absolute Monocyte Count 0.29 10^3/uL (0.1-0.8); Absolute Neutrophil Count 2.39 10^3/uL (1.2-6.7); BE (Venous) 2 mmol/L (-2-3); Basophils % 0.5 %; Eosinophils % 2.6 %; HCO3 (Venous) 29 mmol/L (23-28); Immature Grans % 0.3 %; MCH 26.2 pg (27.0-33.0); MCHC 30.6 % (32.0-36.0); MCV 86 fL (80-95); MPV 10.2 fL (8.0-11.0); Monocytes % 7.5 %; Neutrophils % 62.1 %; O2 Sat (Venous) 44 %; Platelet Count 343 10^3/uL (130-400); RDW 15.1 % (11.7-14.6); RDW-SD 47.6 fL; TCO2 (Venous) 27 mmol/L (24-29); WBC 3.85 10^3/uL (4.4-10.8); pH (Venous) 7.27 (7.31-7.41); pO2 (Venous) 29 mmHg
[2024-12-22 12:21] LABS: pCO2 (Venous) 62 mmHg (41-51)
[2024-12-22 12:29] LABS: Bilirubin Negative (Negative); Blood Negative (Negative); Clarity Clear (Clear); Glucose Negative (Negative); Ketones Negative (Negative); Leukocyte Esterase Negative (Negative); Nitrite Negative (Negative); Urobilinogen 0.2 mg/dL (Up to 0.2); pH 6.5 (5-8)
[2024-12-22 12:45] LABS: ALT 24 U/L (14-59); AST 43 U/L (15-37); Albumin 3.7 g/dL (3.4-5.0); Alkaline Phosphatase 89 U/L (46-116); Anion Gap 6.8 mmol/L (3-11); BUN 8 mg/dL (7-18); Bilirubin, Total 0.2 mg/dL (0.2-1.0); CO2 30.2 mmol/L (21.0-32.0); CREATININE 0.9 mg/dL (0.55-1.02); Calcium 8.4 mg/dL (8.5-10.1); Chloride 103 mmol/L (98-107); Estimated GFR 82.37 (mL/min/1.73m2); Glucose 83 mg/dL (74-106); Magnesium 2.1 mg/dL (1.8-2.4); Potassium 3.9 mmol/L (3.5-5.1); Sodium 140 mmol/L (136-145); Total Protein 7.1 g/dL (6.4-8.2)
[2024-12-22 12:49] LABS: ETHANOL BLOOD < 3.0 mg/dL (<10)
[2024-12-22 12:51] LABS: *AMPHETAMINES SCREEN URINE Negative (Negative); *BARBITURATES SCREEN URINE Negative (Negative); *BENZODIAZEPINES SCREEN URINE Positive (Negative); Cannabinoids THC Negative (Negative); Cocaine Screen,Urine Negative (Negative); METHADONE URINE SCREEN Positive (Negative); OPIATES URINE SCREEN Negative (Negative); Tricyclic Antidepressants Negative (Negative)
--- NOTE | 2024-12-22 13:01 | ED.GENADUL_ITS ---
Discharge Plan Disposition Patient Disposition: Against Medical Advice Condition: Stable Discharge Details Clinical Impression: Methadone overdose Primary Care Provider: Cholo Mtz ED Provider: Magy Johnston Home Meds and New Rx's Prescriptions: No Action methadone 10 mg/mL Concentrate 140 mg PO DAILY gabapentin 800 mg Tablet 800 mg PO TID Discharge Instructions Instructions: Opioid Overdose (DC) Additional Instructions: You were seen in the emergency department today for evaluation after a methadone overdose requiring Narcan administration. You were observed in our emergency department but have elected to leave AGAINST MEDICAL ADVICE prior to completion of the recommended observation by poison control. We did provide you with a refill of your Narcan kit, and recommend you return immediately for any change in breathing, responsiveness, or other concerning symptoms. Please follow-up with your primary care provider in the next few days to discuss this visit and any symptoms that change, worsen, or persist. Thank you for allowing us to be part of your care. HPI General Mode of arrival: EMS . Date/Time Provider Initiated Documentation: 12/22/24 11:57 . Limitations to Documentation: no limitations . Information obtained by: patient, EMS and old records reviewed . 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 The patient reports that she woke up around 5 AM, took her 140 mg of methadone, states that she was going about her morning and forgot that she had taken it, and took a second dose. She was found by her neighbor around 11 AM, was noted to have agonal respirations and was provided with an intranasal dose of the Narcan. When EMS arrived she was awake, though slightly sleepy, maintaining her airway and appropriate respirations/respiratory effort. The patient reports that she did not take any additional medications other than her prescribed gabapentin, no other illicit substances reported. She states that she did this inadvertently, and denies suicidal ideation or self-harm attempts. She reports that after receiving Narcan she did take a third dose of methadone, as she was feeling withdrawal symptoms. Related Data Home Medications ?Medication ?Instructions ?Recorded ?Confirmed gabapentin 800 mg tablet 800 mg PO TID 10/10/18 12/22/24 methadone 10 mg/mL oral concentrate 140 mg PO DAILY 03/30/22 12/22/24 Allergies Allergy/AdvReac Type Severity Reaction Status Date / Time bees Allergy hives Uncoded 12/22/24 12:33 General Stated Complaint: OD/Poison RUFINO: 2 Exam Narrative Exam Narrative: Gen: Awake and alert, in no apparent distress HEENT: Non-icteric sclera, pupils 2 mm and reactive bilaterally, EOMs full Neck: Supple Lungs: No apparent respiratory distress, normal respiratory effort. Lungs (ankle CV: Appears well perfused, heart with regular rate and rhythm, strong distal pulses Abdomen: Non-distended MSK: Moves 4 extremities without apparent limitation in ROM Skin: Visualized skin without rashes, cyanosis. Neuro: Normal Gait, no obvious focal deficits or facial asymmetry. Speaks in fu ll, clear sentences. Psych: Appropriate for situation. Denies suicidal ideation Course Vital Signs Vital signs: Vital Signs Temperature 35.9 C L 12/22/24 11:49 Pulse 70 12/22/24 11:49 Respiratory Rate 12 12/22/24 11:49 Blood Pressure 133/89 12/22/24 11:49 Pulse Oximetry 100 12/22/24 11:49 Temperature 35.9 C L 12/22/24 11:49 Temperature Source Tympanic 12/22/24 11:49 Pulse 91 H 12/22/24 12:50 Pulse 90 12/22/24 12:50 Respiratory Rate 27 H 12/22/24 12:50 Respiratory Effort Normal, Non-Labored 12/22/24 12:23 Respiratory Depth Normal 12/22/24 12:23 Respiratory Pattern Normal 12/22/24 12:23 Blood Pressure 117/74 12/22/24 12:46 Blood Pressure Mean 87 12/22/24 12:46 Pulse Oximetry 97 12/22/24 12:50 Respiratory End-tidal CO2 49 12/22/24 12:50 Oxygen Delivery Method Room Air 12/22/24 11:49 Oxygen Flow Rate 0 12/22/24 11:49 Lab/Test Results Lab/Test Results: Laboratory Tests Range/Units 12/22/24 12/22/24 12:00 12:14 WBC (4.4-10.8) 10^3/uL 3.85 L RBC (3.93-5.22) 10^6/uL 4.20 Hgb (11.2-15.7) g/dL 11.0 L Hct (36.0-46.0) % 36.0 MCV (80-95) fL 86 MCH (27.0-33.0) pg 26.2 L MCHC (32.0-36.0) % 30.6 L RDW (11.7-14.6) % 15.1 H Plt Count (130-400) 10^3/uL 343 MPV (8.0-11.0) fL 10.2 Immature Gran % % 0.3 Neutrophils % % 62.1 Lymphocytes % % 27.0 Monocytes % % 7.5 Eosinophils % % 2.6 Basophils % % 0.5 Nucleated RBC % (0.0-0.3) % 0.0 Absolute Neutrophils (1.2-6.7) 10^3/uL 2.39 Absolute Lymphocytes (1.2-3.4) 10^3/uL 1.04 L Absolute Monocytes (0.1-0.8) 10^3/uL 0.29 Absolute Eosinophils (0.0-0.7) 10^3/uL 0.10 Absolute Basophils (0.0-0.2) 10^3/uL 0.02 VBG pH (7.31-7.41) 7.27 L VBG pCO2 (41-51) mmHg 62 H* VBG pO2 mmHg 29 VBG HCO3 (23-28) mmol/L 29 H VBG Total CO2 (24-29) mmol/L 27 VBG O2 Saturation % 44 VBG Base Excess (-2-3) mmol/L 2 Sodium (136-145) mmol/L 140 Potassium (3.5-5.1) mmol/L 3.9 Chloride (98-107) mmol/L 103 Carbon Dioxide (21.0-32.0) mmol/L 30.2 Anion Gap (3-11) mmol/L 6.8 BUN (7-18) mg/dL 8 Creatinine (0.55-1.02) mg/dL 0.9 Est GFR (CKD-EPI 2020) (mL/min/1.73m2) 82.37 Glucose (74-106) mg/dL 83 Calcium (8.5-10.1) mg/dL 8.4 L Magnesium (1.8-2.4) mg/dL 2.1 Total Bilirubin (0.2-1.0) mg/dL 0.2 AST (15-37) U/L 43 H ALT (14-59) U/L 24 Alkaline Phosphatase (46-116) U/L 89 Total Protein (6.4-8.2) g/dL 7.1 Albumin (3.4-5.0) g/dL 3.7 Urine Color (Yellow) Yellow Urine Clarity (Clear) Clear Urine pH (5-8) 6.5 Ur Specific [place] (1.005-1.025) 1.020 Urine Protein (Neg-Trace) mg/dL Negative Urine Ketones (Negative) mg/dL Negative Urine Blood (Negative) Negative Urine Nitrite (Negative) Negative Urine Bilirubin (Negative) Negative Urine Urobilinogen (Up to 0.2) mg/dL 0.2 Ur Leukocyte Esterase (Negative) Negative Urine Glucose (Negative) mg/dL Negative Urine Opiates Screen (Negative) Negative Urine Methadone Screen (Negative) Positive A Ur Barbiturates Screen (Negative) Negative Ur Tricyclics Screen (Negative) Negative Ur Amphetamines Screen (Negative) Negative U Benzodiazepines Scrn (Negative) Positive A Urine Cocaine Screen (Negative) Negative Ur THC Screen (Negative) Negative Ethyl Alcohol (<10) mg/dL < 3.0 POC- Test(urine) Negative Medical Decision Making This is a 39-year-old female patient presenting for evaluation after methadone overdose. Differential includes but is not limited to intentional or unintentional overdose, certainly considered intoxication and other substances, withdrawal syndrome, metabolic electrolyte derangements, anemia, dehydration, hypercarbia. I note no other respiratory abnormalities such as wheezing, rhonchi, to suggest reactive airway disease exacerbation, pneumonia, pulmonary edema. The patient had an EKG performed, QTc slightly prolonged but otherwise no acute abnormalities. We obtained laboratory studies to include VBG, CBC, CMP, urinalysis, ethyl alcohol, UDS, and U preg. - I reviewed the patient's laboratory studies, white blood cell count slightly low at 3.8, very mildly anemic at 11.0, no thrombocytopenia. Chemistry panel without electrolyte derangements, kidney injury or liver disease identified. Urinalysis noninfectious, UDS positive for methadone and benzodiazepines, alcohol negative. Initial VBG with some mild hypercarbia to 62 with mild associated acidosis of 7.3, resolved on 1 hour recheck without significant intervention. I suspect bradypnea due to her overdose. I reached out to poison control, who recommended an observation of 4 to 6 hours from time of last Narcan, which brings us to 3 PM or 5 PM, certainly depended on patient's symptoms. At 2 PM I was called to the patient's room, the patient states that she is leaving the hospital and wants to go home, where she has family members and friends who can watch her. I have a prolonged AGAINST MEDICAL ADVICE discussion with this patient, who has capacity to refuse care at this point, with no suicidal ideations, alteration in mental status at this time, and will be supervised in the home in case of recurrence of respiratory depression. I did provide her with a harm reduction kit including a refill of her dose of Narcan. The patient understands that she can return to care at any time for reevaluation, understands the risks associated with leaving AGAINST MEDICAL ADVICE and the benefits of staying, and left our facility 1 hour prior to the completion of her observation time. Magy Johnston MD Quality:SDOH Health Related Social Needs: No Data to Display PFSH All Active Problems (Updated 12/22/24 @ 14:05 by Magy Johnston MD) Methadone overdose (Acute) Medical History Chronic back pain Narcotic abuse in remission Surgical History History of abdominal surgery History of hernia repair Social History Smoking/Tobacco Use Status: Current every day Tobacco Type: e-cigarettes Smoking risk assessment performed?: Yes Alcohol Intake: never Drug use: Current Sobriety Substance use type: former substance user Do you feel safe at home: Yes Do you feel safe in your relationship?: Yes
[2024-12-22 13:58] LABS: BE (Venous) 2 mmol/L (-2-3); HCO3 (Venous) 27 mmol/L (23-28); O2 Sat (Venous) 89 %; TCO2 (Venous) 25 mmol/L (24-29); pCO2 (Venous) 45 mmHg (41-51); pH (Venous) 7.38 (7.31-7.41); pO2 (Venous) 57 mmHg
== END 2024-12-22 14:07 | disposition left against medical advice (07) ==
PROVIDERS: Emergency Provider Emergency Medicine; PCP Nurse Practitioner Family
DX: T40.3X1A Poisoning by methadone, accidental (unintentional), initial encounter (principal); R40.4 Transient alteration of awareness; F17.290 Nicotine dependence, other tobacco product, uncomplicated; Z53.29 Procedure and treatment not carried out because of patient's decision for other reasons
CPT/HCPCS: 80053; 80307; 81025; 82805; 93005; 99284; 80320; 81003; 83735; 85025; 93010